=== PATIENT | female | born 1990 | race Caucasian/White ===

== ENCOUNTER → 2017-03-01 | Outpatient (CLI) | payer MEDICAID | END | disposition home or self-care (01) | LOC: LABMAIN 19:26 | PROVIDERS: ATTEND Emergency Medicine | DX: J02.9 Acute pharyngitis, unspecified (principal) | CPT/HCPCS: 87081; 87430 ==

== ENCOUNTER 2019-09-30 19:27 | Emergency (ER) | payer MEDICAID ==
[2019-09-30 19:41] VITALS: RESP 18
--- NOTE | 2019-09-30 20:04 | ED ---
General Adult HPI - General Chief complaint: Weakness Stated complaint: Fatigue Time Seen by Provider: 09/30/19 19:35 Source: patient, family Mode of arrival: ambulatory Limitations: no limitations - History of Present Illness Initial comments: Dictation was produced using [employer] dictation software. please excuse any grammatical, word or spelling errors. Chief Complaint: 29-year-old female no known comorbid disease presents with generalized weakness. History of Present Illness: She is a 29-year-old female she states that since there is a she's been feeling fatigued. Denies any chest pain she does have some exertional dyspnea. She reports having some mild fevers at home but no cough. Patient states that she feels much more winded especially with exertion. She catches herself sighing every once in a while. She measures her temperatures at home found to be like low-grade temperatures. She did take some antipyretics prior to arrival. Denies any lower extremity symptoms. No history of blood clots. She does state oral contraceptive pills. 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 The ROS documented in this emergency department record has been reviewed and confirmed by me. Those systems with pertinent positive or negative responses have been documented in the HPI. All other systems are other negative and/or noncontributory. PHYSICAL EXAM: General Impression: Alert and oriented x3, not in acute distress HEENT: Normocephalic atraumatic, extra-ocular movements intact, pupils equal and reactive to light bilaterally, mucous membranes moist. Cardiovascular: Heart regular rate and rhythm, S1&S2 audible, no murmurs, rubs or gallops Chest: Mild crackles to the right lower lung base Abdomen: Bowel sounds present, abdomen soft, non-tender, non-distended, no organomegaly Musculoskeletal: Pulses present and equal in all extremities, no peripheral edema Motor: no focal deficits noted Neurological: CN II-XII grossly intact, no focal motor or sensory deficits noted Skin: Intact with no visualized rashes Psych: Normal affect and mood ED course: 29-year-old female presents with fatigue, low-grade temperatures nausea and generalized weakness since 4 days. Signs upon arrival are within acceptable limits. Patient's old. Bedside. She does have some crackles with auscultation to the right lower lung base. Laboratory evaluation obtained. CBC, d-dimer, metabolic panel, urine hCG is negative. Negative C-reactive protein. Chest x-ray shows right lower lobe infiltrate. Pending Covid results. Click or presentation concerning for community acquired pneumonia versus early Covid 19 presentation. She 1 dose of Zithromax. Patient advised to quarantine for 14 days. She is given contact information for [facility] Department return parameters advised. Patient will be discharged. EKG interpretation: Ventricular rate 76, normal sinus rhythm,. 132, QRS 80, QTC 425. No SC prolongation, no QTC prolongation, no ST or T-wave changes noted. There is an S1 every 3 T3 pattern. - Related Data Home Medications Medication Instructions Recorded Confirmed Ibuprofen [Motrin Ib] 400 - 600 mg PO Q6H PRN 09/30/19 09/30/19 Vieva 0.1mg/20mcg 1 tab PO DAILY 09/30/19 09/30/19 Previous Rx's Medication Instructions Recorded Azithromycin [Zithromax Z-pack] 0 mg PO DIRECTED #6 tab 09/30/19 Allergies Allergy/AdvReac Type Severity Reaction Status Date / Time No Known Allergies Allergy Verified 09/30/19 20:52 Review of Systems ROS Statement: Those systems with pertinent positive or pertinent negative responses have been documented in the HPI. ROS Other: All systems not noted in ROS Statement are negative. Past Medical History Past Medical History: No Reported History History of Any Multi-Drug Resistant Organisms: None Reported Additional Past Surgical History / Comment(s): wisdom teeth surgery 2007 Past Psychological History: No Psychological Hx Reported Smoking Status: Never smoker Past Alcohol Use History: Unable to Obtain, Occasional Past Drug Use History: None Reported General Exam Limitations: no limitations Course Vital Signs 09/30/19 19:37 Temperature 98.9 F Pulse Rate 91 Respiratory 18 Rate Blood Pressure 127/92 O2 Sat by Pulse 99 Oximetry Medical Decision Making - Lab Data Result diagrams: 09/30/19 20:28 09/30/19 20:28 Lab Results 09/30/19 09/30/19 09/30/19 Range/Units 20:15 20:28 20:28 WBC 4.7 (3.8-10.6) k/uL RBC 4.77 (3.80-5.40) m/uL Hgb 13.5 (11.4-16.0) gm/dL Hct 41.3 (34.0-46.0) % MCV 86.7 (80.0-100.0) fL MCH 28.4 (25.0-35.0) pg MCHC 32.7 (31.0-37.0) g/dL RDW 13.0 (11.5-15.5) % Plt Count 327 (150-450) k/uL Neutrophils % 59 % Lymphocytes % 31 % Monocytes % 6 % Eosinophils % 1 % Basophils % 0 % Neutrophils # 2.8 (1.3-7.7) k/uL Lymphocytes # 1.4 (1.0-4.8) k/uL Monocytes # 0.3 (0-1.0) k/uL Eosinophils # 0.1 (0-0.7) k/uL Basophils # 0.0 (0-0.2) k/uL D-Dimer (<0.60) mg/L FEU Sodium 139 (137-145) mmol/L Potassium 3.9 (3.5-5.1) mmol/L Chloride 105 (98-107) mmol/L Carbon Dioxide 23 (22-30) mmol/L Anion Gap 11 mmol/L BUN 9 (7-17) mg/dL Creatinine 0.60 (0.52-1.04) mg/dL Est GFR (CKD-EPI)AfAm >90 (>60 ml/min/1.73 sqM) Est GFR (CKD-EPI)NonAf >90 (>60 ml/min/1.73 sqM) Glucose 89 (74-99) mg/dL Calcium 9.4 (8.4-10.2) mg/dL Magnesium 2.1 (1.6-2.3) mg/dL Troponin I (0.000-0.034) ng/mL C-Reactive Protein 7.3 (<10.0) mg/L Urine HCG, Qual Not Detected (Not Detectd) 09/30/19 09/30/19 Range/Units 20:28 20:28 WBC (3.8-10.6) k/uL RBC (3.80-5.40) m/uL Hgb (11.4-16.0) gm/dL Hct (34.0-46.0) % MCV (80.0-100.0) fL MCH (25.0-35.0) pg MCHC (31.0-37.0) g/dL RDW (11.5-15.5) % Plt Count (150-450) k/uL Neutrophils % % Lymphocytes % % Monocytes % % Eosinophils % % Basophils % % Neutrophils # (1.3-7.7) k/uL Lymphocytes # (1.0-4.8) k/uL Monocytes # (0-1.0) k/uL Eosinophils # (0-0.7) k/uL Basophils # (0-0.2) k/uL D-Dimer 0.28 (<0.60) mg/L FEU Sodium (137-145) mmol/L Potassium (3.5-5.1) mmol/L Chloride (98-107) mmol/L Carbon Dioxide (22-30) mmol/L Anion Gap mmol/L BUN (7-17) mg/dL Creatinine (0.52-1.04) mg/dL Est GFR (CKD-EPI)AfAm (>60 ml/min/1.73 sqM) Est GFR (CKD-EPI)NonAf (>60 ml/min/1.73 sqM) Glucose (74-99) mg/dL Calcium (8.4-10.2) mg/dL Magnesium (1.6-2.3) mg/dL Troponin I <0.012 (0.000-0.034) ng/mL C-Reactive Protein (<10.0) mg/L Urine HCG, Qual (Not Detectd) Disposition Clinical Impression: Pneumonia Disposition: HOME SELF-CARE Condition: Good Instructions (If sedation given, give patient instructions): Viral Pneumonia (ED) Additional Instructions: Today you were evaluated for symptoms consistent with upper respiratory infection. There is concern that perhaps your symptomatology may represent Covid 19. Your are stable for discharge, however it is instructed to to seek immediate medical attention especially if you develop worsening symptoms especially respiratory distress. In the meantime please remain in quarantine for 14 days. For any other questions please contact [facility] for here in emergency department or [facility] at [phone] Prescriptions: Azithromycin [Zithromax Z-pack] 0 mg PO DIRECTED #6 tab Is patient prescribed a controlled substance at d/c from ED?: No Referrals: David Driscoll DO [Primary Care Provider] - 1-2 days Time of Disposition: 21:17
--- NOTE | 2019-09-30 20:33 | XR ---
EXAMINATION TYPE: XR chest 1V portable DATE OF EXAM: 09/30/2019 COMPARISON: NONE HISTORY: Short of breath TECHNIQUE: FINDINGS: Heart and mediastinum are normal. There is a mild interstitial infiltrate in the right lowe r lobe. The other lung tsai are clear. There are chest leads. Bony thorax is intact. IMPRESSION: Minimal right lower lobe pneumonia.
[2019-09-30 20:40] LABS: Basophils % (A) 0 %; Eosinophils # (A) 0.1 k/uL (0-0.7); Eosinophils % (A) 1 %; HCT 41.3 % (34.0-46.0); HGB 13.5 gm/dL (11.4-16.0); Lymphocytes # (A) 1.4 k/uL (1.0-4.8); Lymphocytes % (A) 31 %; MCH 28.4 pg (25.0-35.0); MCHC 32.7 g/dL (31.0-37.0); MCV 86.7 fL (80.0-100.0); Mean Platelet Volume 7.9; Monocytes # (A) 0.3 k/uL (0-1.0); Monocytes % (A) 6 %; Neutrophils # (A) 2.8 k/uL (1.3-7.7); Neutrophils % (A) 59 %; Platelet Count 327 k/uL (150-450); RBC 4.77 m/uL (3.80-5.40); WBC 4.7 k/uL (3.8-10.6)
[2019-09-30 21:05] LABS: African American GFR (CKD) >90 (>60 ml/min/1.73 sqM); Anion Gap 11 mmol/L; Blood Urea Nitrogen 9 mg/dL (7-17); C Reactive Protein 7.3 mg/L (<10.0); Calcium 9.4 mg/dL (8.4-10.2); Carbon Dioxide 23 mmol/L (22-30); Chloride 105 mmol/L (98-107); Glucose 89 mg/dL (74-99); Magnesium 2.1 mg/dL (1.6-2.3); Non-African American GFR(CKD) >90 (>60 ml/min/1.73 sqM); Potassium 3.9 mmol/L (3.5-5.1); Sodium 139 mmol/L (137-145)
[2019-09-30] MEDS ORDERED: AZITHROMYCIN 500 MG TAB PO STA (21:14)
[2019-09-30 21:16] VITALS: BP 125/84; PULSE 86; TEMP 99.4
== END 2019-09-30 21:32 | disposition home or self-care (01) ==
LOC: EC 19:27
DX: U07.1 COVID-19 (principal); J12.89 Other viral pneumonia; Z79.3 Long term (current) use of hormonal contraceptives
CPT/HCPCS: 36415; 71045; 80048; 81025; 83735; 84484; 85025; 85379; 86140; 87635; 99285

== ENCOUNTER → 2021-10-27 | Outpatient (CLI) | payer MEDICAID, BC | END | disposition home or self-care (01) | LOC: LABWHC1 13:50 | PROVIDERS: ATTEND Obstetrics & Gynecology | DX: Z53.9 Procedure and treatment not carried out, unspecified reason (principal) ==

== ENCOUNTER → 2022-03-02 | Outpatient (CLI) | payer MEDICAID, BC | LOC: EC 08:55 | PROVIDERS: ATTEND Physician Assistant | DX: Z20.822 Contact with and (suspected) exposure to COVID-19 (principal) | CPT/HCPCS: 87635 ==

== ENCOUNTER → 2022-03-16 | Outpatient (CLI) | payer MEDICAID, BC | END | disposition home or self-care (01) | LOC: LABMAIN 10:58 | PROVIDERS: ATTEND Physician Assistant | DX: Z20.822 Contact with and (suspected) exposure to COVID-19 (principal) | CPT/HCPCS: 87635 ==

== ENCOUNTER → 2022-04-14 | Outpatient (CLI) | payer MEDICAID, BC | END | disposition home or self-care (01) | LOC: LABMAIN 12:10 | PROVIDERS: ATTEND Physician Assistant | DX: Z20.822 Contact with and (suspected) exposure to COVID-19 (principal) | CPT/HCPCS: 87635 ==

== ENCOUNTER → 2022-05-10 | Outpatient (CLI) | payer MEDICAID, BC | END | disposition home or self-care (01) | LOC: LABWHC1 13:59 | PROVIDERS: ATTEND Physician Assistant | DX: Z20.822 Contact with and (suspected) exposure to COVID-19 (principal) | CPT/HCPCS: 87635 ==

== ENCOUNTER → 2022-07-14 | Outpatient (CLI) | payer MEDICAID, BC, OTHER | END | disposition home or self-care (01) | LOC: LABMAIN 10:36 | PROVIDERS: ATTEND Physician Assistant | DX: Z20.822 Contact with and (suspected) exposure to COVID-19 (principal) | CPT/HCPCS: 87635 ==

== ENCOUNTER → 2022-10-04 | Outpatient (CLI) | payer MEDICAID, BC | END | disposition home or self-care (01) | LOC: LABWHC1 10:51 | PROVIDERS: ATTEND Obstetrics & Gynecology Reproductive Endocrinology | DX: Z01.812 Encounter for preprocedural laboratory examination (principal); Z20.822 Contact with and (suspected) exposure to COVID-19 | CPT/HCPCS: 87635 ==

== ENCOUNTER → 2022-12-02 | Outpatient (CLI) | payer MEDICAID, BC ==
[2022-12-02 23:08] LABS: Basophils # (A) 0.04 X 10*3/uL (0.00-0.10); Basophils % (A) 0.7 %; HCT 41.5 % (37.2-46.3); HGB 12.9 d/dL (12.0-15.0); Lymphocytes % (A) 23.3 %; MCH 28.4 pg (27.0-32.0); MCHC 31.1 d/dL (32.0-37.0); MCV 91.4 FL (80.0-97.0); Mean Platelet Volume 10.3 FL (9.5-12.2); Monocytes # (A) 0.39 X 10*3/uL (0.20-1.00); Monocytes % (A) 6.5 %; NRBC Per 100 WBC 0 X 10*3/uL (0.00-0.01); Neutrophils # (A) 3.86 X 10*3/uL (1.80-7.70); Neutrophils % (A) 64.2 %; Platelet Count 357 X 10*3/uL (140-440); RBC 4.54 X 10*6/uL (4.10-5.20); RDW 13.2 % (11.5-14.5); WBC 6.01 X 10*3/uL (4.50-10.00)
[2022-12-03 04:38] LABS: Hepatitis B Surface Antigen Nonreactive
[2022-12-04 03:44] LABS: HIV 2 AB Non-Reactive (Non-Reactive); HIV AB P24 Non-Reactive (Non-Reactive); HIV P24 AG Non-Reactive (Non-Reactive)
== END | disposition home or self-care (01) ==
LOC: LABWHC1 14:24
PROVIDERS: ATTEND Obstetrics & Gynecology
DX: Z34.81 Encounter for supervision of other normal pregnancy, first trimester (principal); Z3A.00 Weeks of gestation of pregnancy not specified
CPT/HCPCS: 36415; 85025; 86762; 86780; 86850; 86900; 86901; 87086; 87340; 87390

== ENCOUNTER 2023-06-15 06:00 | Inpatient (IN) | payer MEDICAID, BC ==
[2023-06-15] MEDS ORDERED: DINOPROSTONE 10 MG INSERT.ER VAGINAL ONE (18:53)
[2023-06-15] MEDS ORDERED: NALBUPHINE 10 MG/ML (10 ML MDV) IV PRN (19:30)
--- NOTE | 2023-06-15 19:34 | P.HPOB ---
History of Present Illness H&P Date: 06/15/23 Chief Complaint: 39-0/7 weeks, elective induction, unfavorable cervix The patient is a 33-year-old 2 para 0010 admitted at 39-0/7 weeks as established by in vitro fertilization dating and last menstrual period. She is admitted for elective induction with all signs reassuring, category 1 heart rate tracing. Her has been entirely uncomplicated and group B strep status is negative. Obstetrical history: 2 para 0010 with current statistics listed in history present illness. EDC of 06/23/2023 was established by IVF dating and last menstrual period. Laboratory workup demonstrates a blood type of A+ with a negative antibody screen. Rubella status is immune. Remainder of the laboratory workup was within normal limits. One hour Glucola was normal and group B strep status is negative. Gynecologic history: Unremarkable with no history of any infections to include STDs. Review of Systems Review of systems is confined to history of present illness. Past Medical History Past Medical History: No Reported History History of Any Multi-Drug Resistant Organisms: None Reported Additional Past Surgical History / Comment(s): wisdom teeth surgery 2007 Past Psychological History: No Psychological Hx Reported Past Alcohol Use History: Unable to Obtain, Occasional Past Drug Use History: None Reported Medications and Allergies Home Medications Medication Instructions Recorded Confirmed Type Aspirin [Adult Low Dose Aspirin EC] 81 mg PO DAILY 06/15/23 06/15/23 History Vit No.179/Iron/Folic 1 tablet PO DAILY 06/15/23 06/15/23 History [ Tablet] Vit B Comp No.3/Folic/C/Biotin 1 tablet PO DAILY 06/15/23 06/15/23 History [Cassi-Osman Rx Tablet] Allergies Allergy/AdvReac Type Severity Reaction Status Date / Time No Known Allergies Allergy Verified 06/15/23 18:50 Exam Intake and Output 06/15/23 06/15/23 06/15/23 06:59 14:59 22:59 Other: Weight 95.254 kg In general, this is a well-developed, well-nourished white female in no acute distress. Her heart has a regular rhythm and rate without murmur. Her lungs clear to auscultation bilaterally in all tsai. Her abdomen is gravid, nondistended, has normal active bowel sounds, is soft, nontender, and without any palpable masses aside from the uterine fundus. Her extremities are without any cyanosis, clubbing and there is trace bilateral lower extremity edema and both extremities are nontender to palpation bilaterally. Digital cervical examination demonstrates her cervix to be fingertip dilated, 60% effaced, with the vertex in presentation at -2-3 station. Cervidil is placed in the posterior fornix per protocol. Assessment and Plan (1) Unfavorable cervix in term Current Visit: Yes Status: Acute Code(s): O34.40 - MATERNAL CARE FOR OTH ABNLT OF CERVIX, UNSP TRIMESTER SNOMED Code(s): 528978218 (2) Term Current Visit: Yes Status: Acute Code(s): Z34.90 - ENCNTR FOR SUPRVSN OF NORMAL , UNSP, UNSP TRIMESTER SNOMED Code(s): 17851611 Plan: The patient is admitted for Cervidil cervical ripening and subsequent Pitocin induction should it become necessary. The risks and complications of both cervical ripening and induction of been thoroughly explained and she is understood and agreed to proceed. She will have close maternal and surveillance and expectant management will be practiced. She is a good candidate for either IV, epidural, or nitrous analgesia, whichever she may choose. We will anticipate starting Pitocin in the morning at 6 AM assuming labor has not started and proceed with normal induction procedures.
[2023-06-15 20:58] LABS: Basophils % (A) 0 %; Eosinophils # (A) 0.2 k/uL (0-0.7); Eosinophils % (A) 2 %; HCT 39.1 % (34.0-46.0); HGB 13.1 gm/dL (11.4-16.0); Lymphocytes # (A) 1.6 k/uL (1.0-4.8); Lymphocytes % (A) 18 %; MCH 30.1 pg (25.0-35.0); MCHC 33.5 g/dL (31.0-37.0); MCV 89.8 fL (80.0-100.0); Mean Platelet Volume 8.7; Monocytes # (A) 0.3 k/uL (0-1.0); Monocytes % (A) 4 %; Neutrophils # (A) 6.7 k/uL (1.3-7.7); Neutrophils % (A) 75 %; Platelet Count 276 k/uL (150-450); RBC 4.35 m/uL (3.80-5.40); RDW 13.8 % (11.5-15.5)
[2023-06-16] MEDS ORDERED: TRANEXAMIC 1,000 MG/100ML-NACL 1,000 MG in EMPTY BAG 1 BAG IV PRN (05:07)
[2023-06-16] MEDS ORDERED: CARBOPROST TROMETHAMINE 250 MCG/ML 1 ML AMP IM PRN (05:07)
[2023-06-16] MEDS ORDERED: LIDOCAINE 0.5% (PF) 5 MG/ML (50 ML SDV) SQ PRN (05:07)
[2023-06-16] MEDS ORDERED: METHYLERGONOVINE 0.2 MG/ML 1 ML AMP IM PRN (05:07)
[2023-06-16] MEDS ORDERED: TERBUTALINE 1 MG/ML VIAL SQ PRN (05:07)
[2023-06-16] MEDS ORDERED: OXYTOCIN 10 UNIT/ML 1 ML VIAL IM PRN (05:07)
[2023-06-16] MEDS ORDERED: miSOPROStoL 200 MCG TAB PO PRN (05:07)
[2023-06-16] MEDS ORDERED: OXYTOCIN 30 UNITS/500 ML NS 30 UNIT in SALINE 1 500ML.BAG IV SCH ×2 (05:15→17:45)
[2023-06-16] MEDS: LACTATED RINGERS 1,000 ML IV SCH ×4 (05:31→23:16)
[2023-06-16] MEDS ORDERED: ROPIVACAINE 5 MG/ML 30 ML VIAL ONE (11:14)
[2023-06-16] MEDS ORDERED: fentaNYL (PF) 50 MCG/ML 5 ML AMP ONE (11:14)
[2023-06-16] MEDS ORDERED: SODIUM CHLORIDE 0.9% 250 ML BAG ONE (11:14)
[2023-06-16] MEDS ORDERED: HYDROcodone/APAP 5-325MG 1 EACH TAB PO PRN (17:33)
[2023-06-16] MEDS ORDERED: ZOLPIDEM 5 MG TAB PO PRN (17:33)
[2023-06-16] MEDS ORDERED: diphenhydrAMINE 25 MG CAP PO PRN (17:33)
[2023-06-16] MEDS ORDERED: diphenhydrAMINE 50 MG CAP PO PRN (17:33)
[2023-06-16] MEDS ORDERED: LANOLIN CREAM 5 GM TUBE TOPICAL PRN (17:33)
[2023-06-16] MEDS ORDERED: SIMETHICONE 80 MG CHEWABLE PO PRN (17:33)
[2023-06-16] MEDS ORDERED: diphenhydrAMINE 50 MG/ML 1 ML VIAL IVP PRN ×2 (17:33)
[2023-06-16] MEDS ORDERED: ACETAMINOPHEN TAB 325 MG TAB PO PRN (17:33)
[2023-06-16] MEDS ORDERED: BENZOCAINE/MENTHOL SPRAY 1 GM/SPRAY AEROSOL TOPICAL PRN (17:33)
[2023-06-16] MEDS ORDERED: HYDROcodone/APAP 7.5-325MG 1 EACH TAB PO PRN (17:33)
[2023-06-16] MEDS ORDERED: HYDROCORTISONE 2.5% RECTAL CREAM 30 GM TUBE RECTAL PRN (17:33)
--- NOTE | 2023-06-16 17:37 | P.PROBDLV ---
Vaginal Delivery Note - . Vaginal Delivery Note: The patient is a 33-year-old 2 para 0010 admitted at 38-6/7 weeks for induction at 39-0/7 weeks. She is admitted for Cervidil cervical ripening followed by Pitocin induction the following morning. Her has been entirely uncomplicated and due dates were determined by in vitro fertilization dating. On labor and delivery, all signs reassuring with category 1 heart rate tracing. She had Cervidil placed last evening and made progress overnight such that her cervix this morning was 1-2 cm dilated, 50% effaced, the vertex in presentation at -2 station. Artificial rupture of membranes was carried out demonstrating clear fluid. She made progress to around the active phase of labor and had an epidural catheter placed for analgesia. She then progressed steadily through the active phase of labor to complete and pushed over the course of approximately 45 minutes to a normal spontaneous vaginal delivery of a 7 lbs. 3 oz. baby boy with Apgars of 9 at 1 minute and 9 at 5 minutes delivered in the direct occiput anterior position. There was a loose nuchal cord 1 which was reduced following delivery of the . The placenta was delivered spontaneously, intact, and grossly normal with a grossly normal, centrally inserted three-vessel cord. There was a somewhat stellate midline perineal second-degree laceration which was repaired using 3-0 chromic catgut without difficulty. Estimated blood loss for the case was approximately 250 mL. There were no complications. All sponge, instrument, and needle counts were correct. Both mother and infant are resting comfortably in recovery.
[2023-06-16] MEDS: SENNOSIDES-DOCUSATE SODIUM 1 EACH TAB PO SCH (23:16)
[2023-06-17] MEDS: IBUPROFEN 600 MG TAB PO PRN ×2 (05:19→20:12)
[2023-06-17 07:33] LABS: Basophils % (A) 0 %; Eosinophils # (A) 0.1 k/uL (0-0.7); Eosinophils % (A) 1 %; HCT 36.6 % (34.0-46.0); HGB 12.3 gm/dL (11.4-16.0); Lymphocytes # (A) 1.4 k/uL (1.0-4.8); Lymphocytes % (A) 11 %; MCH 30.2 pg (25.0-35.0); MCHC 33.6 g/dL (31.0-37.0); MCV 89.9 fL (80.0-100.0); Mean Platelet Volume 8.2; Monocytes # (A) 0.5 k/uL (0-1.0); Monocytes % (A) 4 %; Neutrophils % (A) 83 %; Platelet Count 231 k/uL (150-450); RBC 4.07 m/uL (3.80-5.40); RDW 13.9 % (11.5-15.5); WBC 13.2 k/uL (3.8-10.6)
[2023-06-17] MEDS: SENNOSIDES-DOCUSATE SODIUM 1 EACH TAB PO SCH ×2 (08:21→21:04)
--- NOTE | 2023-06-17 11:08 | P.DS ---
Providers Date of admission: 06/15/23 18:25 Expected date of discharge: 06/17/23 Attending physician: Kenroy Montejo Primary care physician: Stated None - Discharge Diagnosis(es) (1) Unfavorable cervix in term Current Visit: Yes Status: Acute (2) Term Current Visit: Yes Status: Acute (3) Normal spontaneous vaginal delivery Current Visit: Yes Status: Acute Hospital Course: The patient is a 33-year-old 2 para 0010 admitted at 38-6/7 weeks for Cervidil cervical ripening with intention of induction at 39-0/7 weeks the following morning. Her due dates were established by in vitro fertilization dating and she has had an entirely uncomplicated . On labor and delivery, all signs reassuring with a category 1 heart tracing. She had the Cervidil placed and made progress overnight which allowed for artificial rupture of membranes in the morning at approximately 1/2 cm of dilation. She progressed to the onset of the active phase of labor and had an epidural catheter placed for analgesia. Should progress through the active phase of labor to complete and pushed over the course of approximately 45 minutes to a normal spontaneous vaginal delivery of a viable 7 lbs. 3 oz. baby boy with Apgars of 9 at 1 minute and 9 at 5 minutes. Her course was unremarkable with vital signs being stable and her temperature was afebrile throughout. She was deemed stable for discharge on day #1 was discharged home to follow-up in the office in 6 weeks' time routinely. Discharge instructions included calling for any significantly increased bleeding or foul-smelling lochia, significantly increased fever or abdominal pain, perineal complaints, breast complaints, or anything else that concerned her. She was additionally instructed to have nothing in the vagina for at least 6 weeks time to include intercourse. She understood her instructions and agrees to follow up as noted above. Discharge medications included continued vitamins as she has opted to breast-feed. She was otherwise to use [id number] analgesic pain medications as needed. Maternal blood type is A+ and rubella status is immune. Patient Condition at Discharge: Stable Plan - Discharge Summary New Discharge Prescriptions: No Action Aspirin [Adult Low Dose Aspirin EC] 81 mg PO DAILY Vit B Comp No.3/Folic/C/Biotin [Cassi-Osman Rx Tablet] 1 tablet PO DAILY Vit No.179/Iron/Folic [ Tablet] 1 tablet PO DAILY Discharge Medication List Aspirin [Adult Low Dose Aspirin EC] 81 mg PO DAILY 06/15/23 [History] Vit No.179/Iron/Folic [ Tablet] 1 tablet PO DAILY 06/15/23 [History] Vit B Comp No.3/Folic/C/Biotin [Cassi-Osman Rx Tablet] 1 tablet PO DAILY 06/15/23 [History] Follow up Appointment(s)/Referral(s): Kenroy Montejo MD [STAFF PHYSICIAN] - 6 Weeks Discharge Disposition: HOME SELF-CARE
[2023-06-17 21:06] VITALS: RESP 18
[2023-06-18] MEDS: IBUPROFEN 600 MG TAB PO PRN (08:18)
[2023-06-18] MEDS: SENNOSIDES-DOCUSATE SODIUM 1 EACH TAB PO SCH (10:00)
[2023-06-18 10:20] VITALS: BP 118/77; PULSE 82; TEMP 98.1
== END 2023-06-18 10:30 | disposition home or self-care (01) | DRG 807 ==
LOC: 4FBP 18:25
PROVIDERS: ADMIT Obstetrics & Gynecology; ATTEND Obstetrics & Gynecology
PROC: 10907ZC Drainage of Amniotic Fluid, Therapeutic from Products of Conception, Via Natural or Artificial Opening (ICD-10-PCS; principal; 2023-06-15)
PROC: 3E0P7VZ Introduction of Hormone into Female Reproductive, Via Natural or Artificial Opening (ICD-10-PCS; principal; 2023-06-15)
PROC: 10E0XZZ Delivery of Products of Conception, External Approach (ICD-10-PCS; 2023-06-16)
PROC: 0KQM0ZZ Repair Perineum Muscle, Open Approach (ICD-10-PCS; 2023-06-16)
DX: O69.81X0 Labor and delivery complicated by cord around neck, without compression, not applicable or unspecified (principal); Z37.0 Single live birth; O70.1 Second degree perineal laceration during delivery; Z3A.39 39 weeks gestation of pregnancy; Z79.82 Long term (current) use of aspirin
CPT/HCPCS: 85025; 86850; 86900; 86901

== ENCOUNTER → 2025-01-16 | Outpatient (CLI) | payer MEDICAID, BC | END | disposition home or self-care (01) | LOC: LABMAIN 15:08 | PROVIDERS: ATTEND Physician Assistant | DX: Z01.812 Encounter for preprocedural laboratory examination (principal) | CPT/HCPCS: 87635 ==